=== PATIENT | male | born 1990 | race African-American/Black ===

== ENCOUNTER 2016-09-10 13:42 | Emergency (ER) ==
--- NOTE | 2016-09-10 14:58 | PROVIDER DOCUMENTATION ---
HPI-EENT General <Lincoln Celeste - Last Filed: 09/10/16 14:58> - General Source: [facility] Quality of Pain: reports: burning Severity: reports: mild Onset/Duration: reports: gradual, 2 days ago Timing: reports: still present, constant Prearrival Treatment: Initiated no prearrival treatment Associated Symptoms: reports: cough, facial pain/swelling, malaise, nasal congestion/drainage, sinus infection, sore throat Locality of Occurance: Home Similar Symptoms Previously?: No Recently seen or treated by another doctor?: No <Des Jaimes - Last Filed: 09/10/16 15:03> - General Chief Complaint: Cold Symptoms Stated Complaint: FLU LIKE SX Time Seen by Provider: 09/10/16 14:54 Allergies/Adverse Reactions: Patient Allergies Allergy/AdvReac Type Severity Reaction Status Date / Time No Known Allergies Allergy Verified 09/10/16 14:22 Home Medications: Home Medication List Medication Instructions Recorded Confirmed Last Taken Type Guaifenesin/D-Methorphan Hb/PE 1 each PO Q6-8H PRN PRN #14 tablet 09/10/16 Unknown Rx [Deconex Dmx Tablet] - History of Present Illness-[facility] General Nature of Presenting Problem: pt is a 25 y/o M that presents to the er with cough/congestion, runny nose, sneezing, body aches x 2 days. (Des Jaimes) Review of Systems - Adult - REVIEW OF SYSTEMS - ADULT Constitutional: reports: fever. denies: chills Eyes: reports: no symptoms reported Ears, Nose, Mouth & Throat: reports: ear pain, sinus problem, throat pain Cardiovascular: denies: chest pain, palpitations, syncope Respiratory: reports: cough. denies: shortness of breath, wheezing Gastrointestinal: denies: abdominal pain, diarrhea, nausea, vomiting Genitourinary: reports: no symptoms reported Musculoskeletal: reports: muscle aches. denies: frequent leg cramps Integumentary: reports: no symptoms reported Neurological: reports: headache/migraines. denies: dizziness/vertigo Psychiatric: reports: no symptoms reported Endocrine: reports: no symptoms reported Hematologic/Lymphatic: reports: no symptoms reported Allergic/Immunologic: reports: no symptoms reported All Other Systems: Reviewed and Negative <Des Jaimes - Last Filed: 09/10/16 15:03> Past History - Adult - PAST MEDICAL HISTORY-ADULT Major Childhood Illnesses: reports: denies history <Lincoln Celeste - Last Filed: 09/10/16 14:58> - PAST MEDICAL HISTORY-ADULT Review of Records: reports: Old Records Reviewed, Nursing Assessment Review, Medications Reviewed - PRIOR SURGERIES/PROCEDURES Surgical/Procedure History: reports: none - IMMUNIZATION STATUS Childhood Immunizations: See Nurse Assessment Flu Vaccine: See Nurse Assessment - FAMILY HISTORY Family History: reviewed, not pertinent - SOCIAL HISTORY Smoking: cigarettes, less than 1 pack/day Alcohol Use Frequency: occasionally Living Situation: family <Des Jaimes - Last Filed: 09/10/16 15:03> Physical Exam- EENT - Physical Exam EENT Initial Vital Signs Reviewed: Yes General Appearance: appears well, alert, no apparent distress Eye Exam: bilateral eye: normal inspection, PERRL Ear Exam: right ear: other (cerumen impaction), left ear: TM normal Nasal Exam: normal inspection. negative: foreign body Throat Exam: normal mouth inspection, pharynx normal Neck: full range of motion, normal inspection Respiratory: lungs clear, normal breath sounds, no respiratory distress, no accessory muscle use Cardiovascular: regular rate, rhythm, no edema, no murmur Abdominal Exam: normal bowel sounds, non tender, soft Extremity: normal range of motion, normal inspection Integumentary: normal color, warm/dry Neurologic: grossly normal, no motor/sensory deficits Psych/Mental Status: normal mood/affect, oriented x 3 <Des Jaimes - Last Filed: 09/10/16 15:03> Progress <Lincoln Celeste - Last Filed: 09/10/16 14:58> <Des Jaimes - Last Filed: 09/10/16 15:03> - PLAN OF CARE/RESULTS Progress/Plan/Lab Results: Vital Signs Temp Pulse Resp BP Pulse Ox 09/10/16 14:19 98.8 F 87 20 120/071 98 No Known Allergies Allergy (Verified 09/10/16 14:22) Guaifenesin/D-Methorphan Hb/PE [Deconex Dmx Tablet] 1 each PO Q6-8H PRN PRN #14 tablet 09/10/16 Laboratory 09/10/16 14:23 Influenza A (Rapid) NEGATIVE Influenza B (Rapid) NEGATIVE Orders Category Date Time Status Flu [INFLUENZA SCREEN PL] Stat Lab 09/10/16 14:23 Completed Dexamethasone [Decadron] Med 09/10/16 14:59 Discontinued 10 mg IM NOW ONE (Des Jaimes) Departure - Departure Time of Disposition Order: 14:58 Certified Medical Emergency: Urgent <Lincoln Celeste - Last Filed: 09/10/16 14:58> <Des Jaimes - Last Filed: 09/10/16 15:03> - Departure DIAGNOSIS: Cold, Viral URI with cough Disposition: HOME 01 Condition: Good Additional Instructions: Take medication as prescribed. Rest and stay well hydrated. Follow up with your primary care provider. ED Follow Up Instructions: You have been treated by a care provider in the Emergency Department. These instructions are being provided to you so you can have an understanding of how to care for yourself upon discharge. Upon discharge from the Emergency Department, you are responsible for making arrangements for follow-up care by a physician of your choice. Take all prescribed medications as directed. Return to the Emergency Department immediately for any new or worsening symptoms. You may call the Physician Referral phone number at [phone] to obtain a list of Physicians who are taking new patients. Prescriptions: Guaifenesin/D-Methorphan Hb/PE [Deconex Dmx Tablet] 1 each PO Q6-8H PRN PRN #14 tablet PRN Reason: Cough and congestion Referrals: None,PCP [Primary Care Provider] - Attestation - Physician/ SERGIO Attestation Patient care was provided by Advanced Practice Provider:: Yes Advanced Practice Provider:: Lincoln Celeste Advanced Practice Provider documentation review:: The Mid-level provider documentation, treatment plan and medical decision making was reviewed by the physician who agrees with all treatment and medical decision making by the P. <Lincoln Celeste - Last Filed: 09/10/16 14:58> - Scribe Verification/Attestation Scribe:: Des Jaimes Acting as Scribe for:: Lincoln Celeste Scribe documention review:: This chart was documented by a scribe and accurately reflects the service the provider performed and the decisions made by the provider. - Physician/ SERGIO Attestation Patient care was provided by Advanced Practice Provider:: Yes Advanced Practice Provider:: Lincoln Celeste Advanced Practice Provider documentation review:: The Mid-level provider documentation, treatment plan and medical decision making was reviewed by the physician who agrees with all treatment and medical decision making by the MLP. <Des Jaimes - Last Filed: 09/10/16 15:03> Physician Attestation - Physician Attestation I, the provider, attest to the following statement:: Lincoln Celeste Physician documentation Attestation:: This documentation recorded by the scribe accurately reflects the service I personally performed and the decisions made by me. <Des Jaimes - Last Filed: 09/10/16 15:03>
[2016-09-10] MEDS ORDERED: DECADRON IM ONE (14:59)
[2016-09-10 15:52] VITALS: BP 132/74
== END 2016-09-10 15:35 | disposition home or self-care (01) ==
LOC: P.ED 13:42
DX: J00 Acute nasopharyngitis [common cold] (principal); J06.9 Acute upper respiratory infection, unspecified; R05 Cough; R09.81 Nasal congestion; J02.9 Acute pharyngitis, unspecified; R53.81 Other malaise; R09.89 Other specified symptoms and signs involving the circulatory and respiratory systems; R06.7 Sneezing; M79.1 Myalgia; R50.9 Fever, unspecified; H92.09 Otalgia, unspecified ear; F17.210 Nicotine dependence, cigarettes, uncomplicated
CPT/HCPCS: 87804; 96372